=== PATIENT | male | born 1980 | race Caucasian/White ===

== ENCOUNTER 2017-11-21 14:51 | Emergency (ER) | payer OTHER ==
[~2017-11-21] VITALS: Ht 165.1 cm; Wt 71.0 kg
[2017-11-21] MEDS ORDERED: BACITRACIN3.5 GM LEFT EYE (19:11)
[2017-11-21 19:36] VITALS: BP 126/86
== END 2017-11-21 19:37 | disposition home or self-care (01) ==
LOC: EME 14:51
PROC: 3E0234Z Introduction of Serum, Toxoid and Vaccine into Muscle, Percutaneous Approach (ICD-10-PCS; principal; 2017-11-21)
DX: S00.12XA Contusion of left eyelid and periocular area, initial encounter (principal); S00.212A Abrasion of left eyelid and periocular area, initial encounter; W55.22XA Struck by cow, initial encounter; Z23 Encounter for immunization
CPT/HCPCS: 70450; 70486; 99281; 99283